=== PATIENT | male | born 1950 | race African-American/Black ===

== ENCOUNTER 2021-02-23 00:04 | Emergency (ER) | payer MEDICARE ==
[~2021-02-23] VITALS: Ht 172.7 cm; Wt 82.0 kg
[2021-02-23 03:37] VITALS: BP 115/72
== END 2021-02-23 03:38 | disposition home or self-care (01) ==
LOC: ER 00:04
DX: S01.01XA Laceration without foreign body of scalp, initial encounter (principal); W01.0XXA Fall on same level from slipping, tripping and stumbling without subsequent striking against object, initial encounter; Y93.89 Activity, other specified; Y92.89 Other specified places as the place of occurrence of the external cause; Y99.8 Other external cause status
CPT/HCPCS: 99284